=== PATIENT | female | born 1970 | race Hispanic/Latino ===

== ENCOUNTER 2017-12-16 17:04 | Emergency (ER) | payer OTHER ==
[2017-12-16 17:21] VITALS: BP 136/80; PULSE 72; TEMP 97.3
--- NOTE | 2017-12-16 17:50 | ED PDOC ---
Arrival/HPI <Mine Alfaro - Last Filed: 12/16/17 18:48> <Dean Pierre DO - Last Filed: 12/16/17 21:59> - General Chief Complaint: Trauma Time Seen by Provider: 12/16/17 17:10 - History of Present Illness Narrative History of Present Illness (Text): 12/16/17 17:50 Patient is a 47 year old female with no significant past medical history who presents to the Emergency department complaining of knee pain after [place]. Patient says she slipped on water and went down onto her left knee. She immediately felt pain but does not remember hearing any pop sounds. Patient went to the [facility] on the [facility] right after where they told her to ice it and come back in an hour and a half when the doctor would be back. Patient went back and had Xrays done and they told her she had a small incomplete fracture of the left patella. They also gave her a shot of Lovenox 30 mg and told her to go to the ER to be evaluated. Patient says she is now having more pain on the left side of her knee with some numbness and tingling of the foot. Patient has a history of numbness of the foot because of a cyst she had in her calf area in the past. She denies any weakness in her leg, only decreased ROM at the left knee joint due to pain and some swelling of the left knee. Of note, patient has had injury to this knee in the past when she had a cheerleading accident. Patient said she had arthroscopy done and they removed 3/ 4 of the cartilage in her left knee. (Mine Alfaro) Past Medical History - Psychiatric Hx Substance Use: No - Surgical History Hx Section: Yes Hx Cholecystectomy: Yes Other/Comment: Lt knee sx in 1985 <Mine lAfaro - Last Filed: 12/16/17 18:48> Family/Social History Family/Social History: Diabetes, Hypertension Smoking Status: Unknown If Ever Smoked Hx Alcohol Use: No Hx Substance Use: No <Mine Alfaro - Last Filed: 12/16/17 18:48> Allergies/Home Meds <Mine Alfaro - Last Filed: 12/16/17 18:48> <Dean Pierre DO - Last Filed: 12/16/17 21:59> Allergies/Adverse Reactions: Allergies No Known Allergies Allergy (Verified 12/16/17 17:40) Home Medications: Home Meds Medication Instructions Recorded Confirmed No Known Home Med 12/16/17 12/16/17 Review of Systems - Physician Review All systems were reviewed & negative as marked: Yes - Review of Systems Constitutional: Normal Respiratory: Normal. absent: SOB Cardiovascular: Normal. absent: Chest Pain Gastrointestinal: Normal. absent: Abdominal Pain Musculoskeletal: Arthralgias (left knee), Joint Swelling (left knee). absent: Back Pain, Neck Pain Skin: Normal. absent: Rash, Laceration Neurological: Normal. absent: Headache, Dizziness Hemo/Lymphatic: Normal. absent: Easy Bleeding, Easy Bruising <Mine Alfaro - Last Filed: 12/16/17 18:48> Physical Exam Vital Signs Reviewed: Yes Temperature: Afebrile Blood Pressure: Normal Pulse: Regular Respiratory Rate: Normal Appearance: Positive for: Well-Appearing, Non-Toxic, Comfortable Pain Distress: Mild Mental Status: Positive for: Alert and Oriented X 3 - Systems Exam Head: Present: Atraumatic, Normocephalic Pupils: Present: PERRL Extroacular Muscles: Present: EOMI Conjunctiva: Present: Normal Mouth: Present: Moist Mucous Membranes Neck: Present: Normal Range of Motion. No: MIDLINE TENDERNESS, Paraspinal Tenderness Respiratory/Chest: Present: Clear to Auscultation, Good Air Exchange. No: Respiratory Distress, Accessory Muscle Use Cardiovascular: Present: Regular Rate and Rhythm, Normal S1, S2. No: Murmurs Abdomen: Present: Normal Bowel Sounds. No: Tenderness, Distention, Peritoneal Signs Back: No: Midline Tenderness, Paraspinal Tenderness, Pain with Leg Raise Upper Extremity: Present: Normal Inspection. No: Cyanosis, Edema Lower Extremity: Present: NORMAL PULSES, Tenderness (inferior to the left patella and at the lateral joint line of the left knee), Other (decreased sensation of the left foot). No: Edema, CALF TENDERNESS, Cyanosis, Normal ROM ( decreased ROM at the left knee due to pain), Swelling, Erythema, Deformity Neurological: Present: GCS=15, Speech Normal Skin: Present: Warm, Dry, Normal Color. No: Rashes Psychiatric: Present: Alert, Oriented x 3, Normal Insight, Normal Concentration <Mine Alfaro Last Filed: 12/16/17 18:48> Vital Signs Temp Pulse Resp BP Pulse Ox 12/16/17 20:47 18 99 12/16/17 17:16 97.3 F L 72 16 136/80 100 Medical Decision Making <Mine Alfaro - Last Filed: 12/16/17 18:48> <Dean Pierre DO - Last Filed: 12/16/17 21:59> ED Course and Treatment: 12/16/17 18:25 Plan: - 3 view XR of the Left knee - Pain control - Reassess and disposition Discussed with Dr. Pierre 12/16/17 18:48 Knee XR: FINDINGS: BONES: Bone alignment and mineralization are normal. There is no acute displaced fracture or bone destruction. JOINTS: There is mild tricompartmental degenerative osteoarthrosis, worse in the lateral compartment with reduced joint spaces, marginal osteophytes and tibial spiking. JOINT EFFUSION: There is a small suprapatellar joint effusion. OTHER FINDINGS: None. IMPRESSION: Mild tricompartmental degenerative osteoarthrosis, worse in the lateral compartment. Small suprapatellar joint effusion. (Mine Alfaro) - RAD Interpretation Radiology Orders: 12/16/17 17:46 KNEE WITH PATELLA LEFT 3 VIEW [RAD] Stat - Medication Orders Current Medication Orders: Discontinued Medications Ketorolac Tromethamine (Toradol) 60 mg IM STAT STA Stop: 12/16/17 17:52 Last Admin: 12/16/17 18:20 Dose: 60 mg MAR Pain Assessment Document 12/16/17 18:20 MS (Rec: 12/16/17 18:20 MS [id number]) Pain Reassessment Is this a pain reassessment? No Sleep Is patient sleeping during reassessment? No Presence of Pain Presence of Pain Yes Pain Scale Used Pain Scale Used Numeric Location Left, Right or Bilateral Left Pain Location Body Site Knee Description Description Intermittent Intensity of Pain at present 3 Pain Behavior Grasping Site IM Administration Charges Document 12/16/17 18:20 MS (Rec: 12/16/17 18:20 MS [id number]) Injection Site MAR Injection Site Left Deltoid Charges for Administration # of IM Administrations 1 - PA / [employer] / Resident Statement RUTH has reviewed & agrees with the documentation as recorded. RUTH has examined the patient and agrees with the treatment plan. <Mine Alfaro - Last Filed: 12/16/17 18:48> - PA / [employer]AN [employer] / Resident Statement RUTH has reviewed & agrees with the documentation as recorded. / has examined the patient and agrees with the treatment plan. <Dean Pierre DO - Last Filed: 12/16/17 21:59> Disposition/Present on Arrival - Present on Arrival Any Indicators Present on Arrival: No History of DVT/PE: No History of Uncontrolled Diabetes: No Urinary Catheter: No History of Decub. Ulcer: No History Surgical Site Infection Following: None - Disposition Have Diagnosis and Disposition been Completed?: Yes Disposition Time: 18:50 <Mine Alfaro - Last Filed: 12/16/17 18:48> - Disposition Disposition Time: 18:40 <Dean Pierre DO - Last Filed: 12/16/17 21:59> - Disposition Diagnosis: Left knee pain, Effusion of left knee joint Disposition: HOME/ ROUTINE Condition: STABLE Discharge Instructions (ExitCare): Knee Pain (DC) Additional Instructions: Please return to your nearest Emergency department if your experience any new or worsening symptoms. If symptoms do not improve or resolve in the next 4-6 weeks, you may need to see an orthopedic surgeon for possible ligament/tendon damage. Please follow up with you PCP when you return home. [facility] - Follow up with primary Forms: [employer] ([place])
--- NOTE | 2017-12-16 18:38 | RAD ---
PROCEDURE: Left Knee Radiographs. HISTORY: Pain. COMPARISON: None. FINDINGS: BONES: Bone alignment and mineralization are normal. There is no acute displaced fracture or bone destruction. JOINTS: There is mild tricompartmental degenerative osteoarthrosis, worse in the lateral compartment with reduced joint spaces, marginal osteophytes and tibial spiking. JOINT EFFUSION: There is a small suprapatellar joint effusion. OTHER FINDINGS: None. IMPRESSION: Mild tricompartmental degenerative osteoarthrosis, worse in the lateral compartment. Small suprapatellar joint effusion.
[2017-12-16 20:47] VITALS: RESP 18; O2SAT 99
== END 2017-12-16 19:45 | disposition home or self-care (01) ==
LOC: ED 17:04
DX: M25.562 Pain in left knee (principal); M25.462 Effusion, left knee
CPT/HCPCS: 73562; 96372; 99285; J1885